=== PATIENT | female | born 1985 | race Caucasian/White ===

== ENCOUNTER 2016-10-24 16:44 | Emergency (ER) | payer SELFPAY ==
[~2016-10-24] VITALS: Ht 160 cm; Wt 68.0 kg
[2016-10-24 17:03] VITALS: BP 131/62
[2016-10-24 17:18] LABS: BILIRUBIN,URINE SMALL (NEG); GLUCOSE,URINE NEGATIVE (NEG); NITRITE,URINE POSITIVE (NEG); PH,URINE 5.5; PROTEIN,URINE NEGATIVE (NEG-TRACE); UROBILINOGEN,URINE 0.2 mg/dL (0.2 mg/dL)
[2016-10-24 17:39] LABS: BACTERIA,URINE 0 /HPF (0-FEW); SQUAMOUS EPITHELIAL CELL,UR OCC /LPF
[2016-10-24] MEDS ORDERED: metroNIDAZOLE 500 MG TABLET PO ONE (18:00)
[2016-10-24] MEDS ORDERED: AZITHROMYCIN 250 MG TABLET. PO ONE (18:00)
[2016-10-24] MEDS ORDERED: cefTRIAXone IM 250 MG VIAL IM ONE (18:00)
[2016-10-24] MEDS ORDERED: SULF1TAB23 PO (18:16)
--- NOTE | 2016-10-24 18:17 | PHYS DOC ---
Past Medical History Past Medical History: No Pertinent History Past Surgical History: Tubal ligation Alcohol Use: None Drug Use: None Adult General Chief Complaint Chief Complaint: PAIN ON URINATION HPI HPI Patient is a 30 year old female who presents with dysuria for a couple days. Patient states she believes she has a UTI. She states she also would like to be tested and treated for STDs because the significant other tested positive for Trichomonas. Review of Systems Review of Systems Constitutional: Denies fever or chills [] Eyes: Denies change in visual acuity, redness, or eye pain [] HENT: Denies nasal congestion or sore throat [] Respiratory: Denies cough or shortness of breath [] Cardiovascular: No additional information not addressed in HPI [] GI: Denies abdominal pain, nausea, vomiting, bloody stools or diarrhea [] : Dysuria, concern for STDs Musculoskeletal: Denies back pain or joint pain [] Integument: Denies rash or skin lesions [] Neurologic: Denies headache, focal weakness or sensory changes [] Endocrine: Denies polyuria or polydipsia [] Current Medications Current Medications Current Medications Medications (Trade) Dose Ordered Sig/José Start Time Stop Time Status Last Admin Dose Admin Azithromycin (Zithromax) 1,000 mg 1X ONCE 10/24/16 18:00 10/24/16 18:01 DC 10/24/16 18:09 1,000 MG Ceftriaxone Sodium (Rocephin Im) 250 mg 1X ONCE 10/24/16 18:00 10/24/16 18:01 DC 10/24/16 18:11 250 MG Metronidazole (Flagyl) 2,000 mg 1X ONCE 10/24/16 18:00 10/24/16 18:01 DC 10/24/16 18:08 2,000 MG Allergies Allergies Allergies Coded Allergies Type Severity Reaction Last Updated Verified No Known Drug Allergies 10/24/16 No Physical Exam Physical Exam Constitutional: Well developed, well nourished, no acute distress, non-toxic appearance. [] HENT: Normocephalic, atraumatic, bilateral external ears normal, oropharynx moist, no oral exudates, nose normal. [] Eyes: PERRLA, EOMI, conjunctiva normal, no discharge. [] Neck: Normal range of motion, no tenderness, supple, no stridor. [] Cardiovascular:Heart rate regular rhythm, no murmur [] Lungs & Thorax: Bilateral breath sounds clear to auscultation [] Abdomen: Bowel sounds normal, soft, no tenderness, no masses, no pulsatile masses. [] Skin: Warm, dry, no erythema, no rash. [] Back: No tenderness, no CVA tenderness. [] Extremities: No tenderness, no cyanosis, no clubbing, ROM intact, no edema. [] Neurologic: Alert and oriented X 3, normal motor function, normal sensory function, no focal deficits noted. [] Psychologic: Affect normal, judgement normal, mood normal. [] Current Patient Data Vital Signs Vital Signs Date Time Temp Pulse Resp B/P (MAP) Pulse Ox O2 Delivery O2 Flow Rate FiO2 10/24/16 17:03 98.1 114 18 98 Room Air 98.1 Lab Values Laboratory Tests Test 10/24/16 17:09 Urine Color Sue Urine Clarity Cloudy Urine pH 5.5 Urine Specific [place] 1.025 Urine Protein Negative mg/dL (NEG-TRACE) Urine Glucose (UA) Negative mg/dL (NEG) Urine Ketones (Stick) Trace mg/dL (NEG) Urine Blood Trace (NEG) Urine Nitrite Positive (NEG) Urine Bilirubin Small (NEG) Urine Urobilinogen Dipstick 0.2 mg/dL (0.2 mg/dL) Urine Leukocyte Esterase Large (NEG) Urine RBC 1-2 /HPF (0-2) Urine WBC 1-4 /HPF (0-4) Urine Squamous Epithelial Cells Occ /LPF Urine Amorphous Sediment Present /HPF Urine Bacteria 0 /HPF (0-FEW) Urine Mucus Mod /LPF EKG EKG [] Radiology/Procedures Radiology/Procedures [] Course & Med Decision Making Course & Med Decision Making Pertinent Labs and Imaging studies reviewed. (See chart for details) Patient is in the ED with dysuria and concern for STDs. Her significant other tested positive for Trichomonas. Urine analysis is positive for UTI, no Trichomonas noted in urine but patient was treated prophylaxis in the ED with Flagyl Rocephin and azithromycin. Discharged with Bactrim for UTI. Follow-up with the health department or PCP for further STD concerns. Dragon Disclaimer Dragon Disclaimer This electronic medical record was generated, in whole or in part, using a voice recognition dictation system. Departure Departure Impression: Primary Impression: Urinary tract infection Additional Impression: Concern about STD in female without diagnosis Disposition: HOME, SELF-CARE Condition: STABLE Referrals: NO PCP (PCP) Follow-up with the primary care doctor or the health department for further STD concerns Patient Instructions: Sexually Transmitted Disease, Urinary Tract Infection Additional Instructions: You were seen for urinary tract infection and concern for STDs. We treated you in the emergency room for STDs no sex for seven days. Use protection in the future. Contact all your partners, let them know you were treated for STDs and ask them to seek treatment too. Complete your antibiotics for UTI. Follow-up with your own primary care doctor or the health department for further STD concerns. Scripts Sulfamethoxazole/Trimethoprim (BACTRIM 400-80 MG TABLET) 1 Each Tablet 1 TAB PO BID, #14 TAB Prov: MANJINDER ALVAREZ APRN 10/24/16 Problem Qualifiers Primary Impression: Urinary tract infection Urinary tract infection type: acute cystitis Hematuria presence: without hematuria Qualified Codes: N30.00 - Acute cystitis without hematuria MANJINDER ALVAREZ APRN October 24, 2016 18:17
== END 2016-10-24 18:27 | disposition home or self-care (01) ==
LOC: ER 16:44
DX: N39.0 Urinary tract infection, site not specified (principal); Z20.2 Contact with and (suspected) exposure to infections with a predominantly sexual mode of transmission; Z98.51 Tubal ligation status
CPT/HCPCS: 81001; 84703; 96372; 99283; J0696; Q0144; 80305; 80320; 81025; G0481